=== PATIENT | female | born 1960 | race Caucasian/White ===

== ENCOUNTER 2017-06-10 11:02 | Emergency (ER) | payer MEDICAID, OTHER ==
[~2017-06-10] VITALS: Wt 62.0 kg
[2017-06-10] MEDS ORDERED: ONDANSETRON (ODT) 4 MG TAB ODT STA (11:52)
[2017-06-10] MEDS ORDERED: KETOROLAC 30 MG INJ IM STA (11:52)
[2017-06-10] MEDS ORDERED: AMOX500C2 PO (11:57)
[2017-06-10] MEDS ORDERED: ONDA8TAB14 PO (11:57)
[2017-06-10] MEDS ORDERED: IBUP-1542 PO (11:57)
--- NOTE | 2017-06-10 12:01 | ERD ---
ER Documentation Chief Complaint Date/Time DATE: 06/10/17 TIME: 12:00 Chief Complaint throat pain, vomiting, dizziness, no abd pain HPI This 48-year-old female presents with sore throat and chills nausea and vomiting starting earlier today. The nausea is primarily from the discomfort in the throat. She denies abdominal pain, cough measured fevers. Denies chest pain or shortness of breath. ROS All systems reviewed and are negative except as per history of present illness. Medications Home Meds Active Scripts Ondansetron (Ondansetron Odt) 8 Mg Tab.rapdis, 8 MG PO Q6H Y for NAUSEA AND/OR VOMITING, #6 TAB Prov:MARY ANN GUZMAN MD 06/10/17 Amoxicillin* (Amoxicillin*) 500 Mg Cap, 500 MG PO TID for 10 Days, CAP Prov:MARY ANN GUZMAN MD 06/10/17 Ibuprofen* (Motrin*) 600 Mg Tab, 600 MG PO Q6, #15 TAB Prov:MARY ANN GUZMAN MD 06/10/17 PMhx/Soc History of Surgery: Yes () Anesthesia Reaction: No Hx Neurological Disorder: No Hx Respiratory Disorders: No Hx Cardiac Disorders: No Hx Psychiatric Problems: No Hx Miscellaneous Medical Probl: No Hx Alcohol Use: No Hx Substance Use: No Hx Tobacco Use: No Smoking Status: Never smoker Physical Exam Vitals Vital Signs Date Time Temp Pulse Resp B/P Pulse Ox O2 Delivery O2 Flow Rate FiO2 06/10/17 11:05 97.3 78 17 160/77 95 Physical Exam Const: [] Alert, [id number]. Head: Atraumatic Eyes: Normal Conjunctiva ENT: Normal External Ears, Nose and Mouth. TMs normal. Erythema in the posterior oropharynx. Uvula midline and airway patent. Neck: Full range of motion..~ No meningismus. Resp: Clear to auscultation bilaterally Cardio: Regular rate and rhythm, no murmurs Abd: Soft, non tender, non distended. Normal bowel sounds Skin: No petechiae or rashes Back: No midline or flank tenderness Ext: No cyanosis, or edema Neur: Awake and alert Psych: Normal Mood and Affect Results 24 hrs Current Medications Medications (Trade) Dose Ordered Sig/Gera Route PRN Reason Start Time Stop Time Status Last Admin Dose Admin Ketorolac Tromethamine (Toradol) 30 mg ONCE STAT IM 06/10/17 11:52 06/10/17 11:54 DC Ondansetron HCl (Zofran Odt) 8 mg ONCE STAT ODT 06/10/17 11:52 06/10/17 11:54 DC Procedures/MDM Presents with signs of pharyngitis. Current signs and symptoms do not suggest abscess and there is no evidence of airway obstruction, hypoxemia. Patient has vomiting appears to be gagging from her sore throat without any abdominal etiology. Patient has no classic chest pain or shortness of breath. Patient has no other comorbidities. She was given Toradol 30 mg IM and Zofran 8 mg of mouth. Patient will sewn in ibuprofen, primary care follow-up and return precautions. The patient was stable with no new complaints during the ER course. Clinically, there is no current evidence to suggest meningitis, sepsis, acute abdomen, pneumonia, acute coronary syndrome, pulmonary embolism, or any other emergent condition appearing to require further evaluation or hospitalization. The patient should certainly return for any new or worsening symptoms per the aftercare instructions. They should otherwise follow-up with her primary care doctor for reevaluation this week. Departure Diagnosis: Primary Impression: Pharyngitis, acute Pharyngitis/tonsillitis etiology: unspecified etiology Qualified Code: J02.9 - Acute pharyngitis, unspecified etiology Condition: Stable Patient Instructions: Pharyngitis, Strep (Presumed) Additional Instructions: Cheque otro vez con otto doctor primario en el proximo man or regresa para mas o nueva simptomas. MARY ANN GUZMAN MD Jun 10, 2017 12:01
== END 2017-06-10 12:22 | disposition home or self-care (01) ==
LOC: FTE 11:02
DX: J02.9 Acute pharyngitis, unspecified (principal)
CPT/HCPCS: 96372; J1885; Z7502; Z7610